=== PATIENT | male | born 1970 | race African-American/Black ===

== ENCOUNTER 2017-04-28 23:08 | Inpatient (IN) | payer SELFPAY ==
[2017-04-28 23:40] LABS: Prothrombin Time 21.9 SEC (12.0-14.7)
[2017-04-28 23:45] LABS: Oxyhemoglobin 23.6 % (94.0-97.0); Sodium 142 mmol/L (135-148)
[2017-04-28 23:46] LABS: Modified Allen's Test NOT DONE
[2017-04-28 23:47] LABS: Mode CPR BVM MASK; Vent NO
[2017-04-28 23:53] LABS: Hematocrit 32.5 % (42.0-52.0); PTT 203.9 SEC (22.9-36.1); Red Blood Cell (RBC) Count 3.62 mill/uL (4.70-6.10); White Blood Cell (WBC) Count 4.4 thou/uL (4.8-10.8)
[2017-04-28] MEDS ORDERED: Sodium Bicarbonate 2.4 MEQ/5 ML ONE (23:57)
[2017-04-28] MEDS ORDERED: Sodium Bicarb 50 MEQ/50 ML Abboject 8.4% SYRINGE ONE (23:58)
--- NOTE | 2017-04-29 | RAD ---
SINGLE VIEW OF THE CHEST: Comparison: None. History: Chest pain, shortness of breath, respiratory failure. FINDINGS: Single view of the chest shows a normal sized cardiomediastinal silhouette. There is no evidence of consolidation, mass, or pleural effusion. The bones are unremarkable. IMPRESSION: No evidence of acute cardiopulmonary disease. POS: [facility]
[2017-04-29 00:04] LABS: ALT (SGPT) 52 U/L (8-55); AST (SGOT) 102 U/L (5-34); Alkaline Phosphatase 60 U/L (40-150); Anion Gap 35 mmol/L (10-20); BUN (Urea Nitrogen) 13 mg/dL (8.9-20.6); Bilirubin, Total 0.4 mg/dL (0.2-1.2); Calc. Creatinine Clearance 0 mL/min (70-130); Carbon Dioxide 37 mmol/L (22-29); Chloride 108 mmol/L (98-107); Estimated GFR-MDRD 59; Globulin 3.4 g/dL (2.4-3.5); Protein, Total 6.2 g/dL (6.0-8.3)
[2017-04-29 00:06] LABS: Mean Platelet Volume 9.1 fL (7.4-10.4)
[2017-04-29] MEDS ORDERED: Calcium Chloride 1 GM/10 ML Abboject SYRINGE ONE ×2 (00:11→02:18)
[2017-04-29] MEDS ORDERED: EPINEPHrine 1 MG/10 ML Abboject SYRINGE ONE (00:11)
[2017-04-29] MEDS ORDERED: Sodium Bicarb 50 MEQ/50 ML Abboject 8.4% SYRINGE ONE ×4 (00:11→07:52)
[2017-04-29] MEDS ORDERED: PHENYLEPHRINE-NS 100 MCG/ML 10 ML SYRINGE ONE (00:13)
[2017-04-29 00:14] LABS: Calcium 9.6 mg/dL (7.8-10.44)
[2017-04-29 00:19] LABS: Band 8 % (5-11); Metamyelocyte 2 % (0-0); Neutrophil 40 % (42-75); Reactive Lymphocytes 2 % (0-10)
[2017-04-29] MEDS ORDERED: Phenylephrine 10 MG/NS 250 ML 250 ML ONE (01:01)
[2017-04-29] MEDS ORDERED: Fentanyl 100 MCG/2 ML VIAL ONE (01:14)
[2017-04-29 01:44] LABS: #Basophils 0.1 thou/uL (0.0-0.2); #Eosinphils 0.2 thou/uL (0.0-0.7); #Lymphocytes 3.4 thou/uL (1.20-3.40); #Monocytes 0.2 thou/uL (0.11-0.59); #Neutrophils 9.9 thou/uL (1.40-6.50); %Basophils 0.4 % (0.0-1.0); %Eosinophils 1.5 % (0.0-10.0); %Lymphocytes 24.6 % (21.0-51.0); %Monocytes 1.1 % (0.0-10.0); Hematocrit 31.6 % (42.0-52.0); Mean Platelet Volume 7.6 fL (7.4-10.4); White Blood Cell (WBC) Count 13.6 thou/uL (4.8-10.8)
[2017-04-29 01:53] LABS: ALT (SGPT) 508 U/L (8-55); AST (SGOT) 1277 U/L (5-34); Alkaline Phosphatase 79 U/L (40-150); Anion Gap 30 mmol/L (10-20); BUN (Urea Nitrogen) 14 mg/dL (8.9-20.6); Bilirubin, Total 0.4 mg/dL (0.2-1.2); Calc. Creatinine Clearance 0 mL/min (70-130); Calcium 9.2 mg/dL (7.8-10.44); Carbon Dioxide 17 mmol/L (22-29); Chloride 106 mmol/L (98-107); Estimated GFR-MDRD 45; Globulin 2.1 g/dL (2.4-3.5); Protein, Total 4.4 g/dL (6.0-8.3)
[2017-04-29 02:15] LABS: Sodium 146 mmol/L (135-148)
[2017-04-29 02:20] LABS: Mechanical Tidal Volume 500 ml; Mode SIMV; Modified Allen's Test NOT DONE; Pressure Support 10 cmH2O; Vent YES
[2017-04-29 02:24] LABS: Magnesium 2.4 mg/dL (1.6-2.6)
[2017-04-29 02:29] LABS: Prothrombin Time 29.5 SEC (12.0-14.7)
[2017-04-29] MEDS ORDERED: Norepinephrine 8 MG/250 ML BAG IVPB PRN (02:30)
[2017-04-29 02:42] LABS: Fibrinogen 89 mg/dL (253-463); PTT 146.2 SEC (22.9-36.1)
[2017-04-29] MEDS ORDERED: Phenylephrine HCL 10 MG, Admixture Fee 1 EACH in Sodium Chloride 0.9% 250 ML 250 ML IVPB SCH (02:45)
[2017-04-29] MEDS ORDERED: Phenylephrine 10 MG/NS 250 ML 250 ML IVPB SCH (02:45)
[2017-04-29 02:46] LABS: Phosphorus 11.4 mg/dL (2.3-4.7)
[2017-04-29] MEDS ORDERED: Fentanyl 20 MCG/ML 250 ML ONE (02:56)
[2017-04-29] MEDS ORDERED: Dextrose 50% Abboject 50 ML SYRINGE SLOW IVP PRN (03:01)
[2017-04-29] MEDS ORDERED: Sodium Chloride 0.9% 1,000 ML IV SCH (03:01)
[2017-04-29] MEDS ORDERED: TETANUS AND DIPHTHERIA TOX/PF 0.5 ML DISP.SYRIN IM ONE (03:01)
[2017-04-29] MEDS ORDERED: Dextrose 5% in Water 1,000 ML IV PRN (03:01)
[2017-04-29] MEDS ORDERED: Sodium Bicarb 50 MEQ/50 ML Abboject 8.4% SYRINGE IVP SCH (03:01)
[2017-04-29] MEDS ORDERED: Ondansetron HCl/PF 4 MG/2 ML Vial IVP PRN (03:01)
[2017-04-29] MEDS ORDERED: Ventilator Sedation Protocol 1 EACH FS SCH ×2 (03:01)
[2017-04-29] MEDS ORDERED: Propofol 1,000 MG/100 ML VIAL IV PRN (03:10)
[2017-04-29] MEDS ORDERED: Morphine Sulfate 2 MG/ML SYRINGE SLOW IVP PRN (03:10)
[2017-04-29] MEDS ORDERED: DISCONTINUE PREVIOUS NARCOTIC PAIN MEDICATIONS AND BENZODIAZEPINES FS SCH (03:10)
[2017-04-29] MEDS ORDERED: Fentanyl 20 MCG/ML 250 ML IVPB SCH (03:10)
[2017-04-29] MEDS ORDERED: Lorazepam 2 MG/ML VIAL SLOW IVP PRN (03:10)
[2017-04-29 03:27] LABS: #Eosinphils 0.1 thou/uL (0.0-0.7); #Lymphocytes 1.9 thou/uL (1.20-3.40); #Monocytes 0.2 thou/uL (0.11-0.59); #Neutrophils 6.7 thou/uL (1.40-6.50); %Basophils 0.2 % (0.0-1.0); %Eosinophils 1.2 % (0.0-10.0); %Lymphocytes 21.2 % (21.0-51.0); %Monocytes 2.1 % (0.0-10.0); Hematocrit 27.4 % (42.0-52.0); Mean Platelet Volume 7.5 fL (7.4-10.4); Red Blood Cell (RBC) Count 2.93 mill/uL (4.70-6.10); White Blood Cell (WBC) Count 8.9 thou/uL (4.8-10.8)
[2017-04-29] MEDS ORDERED: Calcium Chloride 13.6 MEQ in Sodium Chloride 0.9% 100 ML IVPB SCH (03:30)
[2017-04-29 03:38] LABS: Anion Gap 27 mmol/L (10-20); BUN (Urea Nitrogen) 15 mg/dL (8.9-20.6); Calc. Creatinine Clearance 0 mL/min (70-130); Calcium 9.1 mg/dL (7.8-10.44); Carbon Dioxide 18 mmol/L (22-29); Chloride 109 mmol/L (98-107); Estimated GFR-MDRD 45; Fibrinogen 179 mg/dL (253-463); Magnesium 2.2 mg/dL (1.6-2.6); Prothrombin Time 21.2 SEC (12.0-14.7)
[2017-04-29 03:39] LABS: PTT 93.7 SEC (22.9-36.1)
[2017-04-29 03:43] LABS: Phosphorus 9.5 mg/dL (2.3-4.7)
--- NOTE | 2017-04-29 04:05 | OP ---
DATE OF PROCEDURE: 04/29/2017 PREOPERATIVE DIAGNOSIS: Status post impalement on a fence post with an entrance wound on his right infragluteal fold and exit in his groin with massive hemorrhage in the emergency department with concern for right leg/intra- abdominal hemorrhage. POSTOPERATIVE DIAGNOSIS: Status post impalement on a fence post with an entrance wound on his right infragluteal fold and exit in his groin with massive hemorrhage in the emergency department with concern for right leg/intra- abdominal hemorrhage. PROCEDURE: Right groin exploration with ligation of multiple venous and arterial bleeders. Femoral artery and vein repair. Irrigation, debridement and packing of the right groin wound. SURGEONS: Dr. Terell Freed and Dr. Rhina Anaya CLINICAL QUALITY MANAGER: SHANIA Edwards. ANESTHESIA: General endotracheal. ESTIMATED BLOOD LOSS: Massive. Transfusions are recorded anesthesia record DESCRIPTION OF PROCEDURE: I met the patient in the hallway on the way to the operating room and assisted in moving him to the operating room, transferring him to the bed and removing the tourniquet. Manual pressure was held during prepping. The patient was then draped while manual pressure was held. Femoral artery compression was performed. There was a palpable femoral pulse. The exit wound was opened and extended both up toward the inguinal ligament and down towards the knee. Wound was extended twice more to allow for adequate exposure. Upon entering the wounds we were immediately inside a large cavity that was superficial to the femoral arterial and venous system and medial. There was a significant amount of venous bleeding which was controlled with multiple ties and clips Femoral vein was repaired with interrupter 5-0 prolene. After the venous bleeding had been controlled, the femoral artery pressure was released. There were multiple small bleeders that were controlled with clips and 5-0 prolene in the Superficial femoral artery. The femoral artery itself was exposed, exposing the bifemoral bifurcation and superficial femoral artery. There was a palpable pulse down his superficial femoral artery. Grass and debris were removed from the wound. The wound was then copiously irrigated and packed and manual pressure held while Dr. Anaya explored the abdomen. After a negative abdominal exploration and that wound closure, the groin wound was again explored. Multiple small bleeders were again controlled with clips. The wound was copiously irrigated and packed with Betadine soaked gauze. The second wound that communicated with his buttock wound was again explored, irrigated, clear and packed with Betadine soaked gauze. The patient was then frog-legged and his buttock wound copiously prepped with Betadine. The wound was then packed with Betadine soaked gauze. A sterile dressing was applied and towels covering the wounds were held in place with Ioban. The patient was transferred to the Intensive Care Unit in critical condition. Needle, sponge, and instrument counts were all reported as correct. AFSHAN
[2017-04-29 04:08] LABS: Oxyhemoglobin 96.4 % (94.0-97.0); Sodium 147 mmol/L (135-148)
[2017-04-29] MEDS ORDERED: Albumin 25% 25 GM/100 ML BOT IVPB SCH ×2 (04:15→06:37)
[2017-04-29 04:16] LABS: Mechanical Tidal Volume 500 ml; Mode SIMV; Modified Allen's Test NOT DONE; Pressure Support 10 cmH2O; Vent YES
[2017-04-29] MEDS ORDERED: Sodium Bicarb 50 MEQ/50 ML VIAL IVP SCH (04:30)
[2017-04-29] MEDS ORDERED: Sodium Bicarbonate 150 MEQ in Dextrose 5% in Water 1,000 ML IV SCH ×4 (04:30→05:45)
[2017-04-29] MEDS ORDERED: Hydrocortisone Sod Succ/PF 100 mg/2 ml Vial IVP SCH (04:30)
[2017-04-29] MEDS ORDERED: Calcium Chloride 1 GM/10 ML Abboject SYRINGE IVP SCH ×2 (04:30→05:45)
[2017-04-29] MEDS ORDERED: Albumin 5% 250 ML ONE (04:42)
[2017-04-29] MEDS ORDERED: SODIUM CHLORIDE IVPB SCH (05:15)
[2017-04-29] MEDS ORDERED: ADMIXTURE FEE IVPB SCH (05:15)
[2017-04-29] MEDS ORDERED: PHENYLEPHRINE HCL IVPB SCH (05:15)
[2017-04-29 05:57] LABS: Fibrinogen 164 mg/dL (253-463)
[2017-04-29 05:58] LABS: Prothrombin Time 26.5 SEC (12.0-14.7)
[2017-04-29 05:59] LABS: PTT 113.6 SEC (22.9-36.1)
[2017-04-29 06:07] LABS: #Lymphocytes 1.1 thou/uL (1.20-3.40); #Monocytes 0.2 thou/uL (0.11-0.59); #Neutrophils 6.4 thou/uL (1.40-6.50); %Basophils 0.1 % (0.0-1.0); %Eosinophils 0.5 % (0.0-10.0); %Monocytes 2.9 % (0.0-10.0); Hematocrit 15.6 % (42.0-52.0); Mean Platelet Volume 7.5 fL (7.4-10.4); Red Blood Cell (RBC) Count 1.72 mill/uL (4.70-6.10); White Blood Cell (WBC) Count 8.2 thou/uL (4.8-10.8)
[2017-04-29] MEDS ORDERED: ADMIXTURE FEE IV SCH (06:30)
[2017-04-29] MEDS ORDERED: HUMAN PROTHROMBIN COMPLX IV SCH (06:30)
[2017-04-29] MEDS ORDERED: Phytonadione 10 MG/ML AMP SLOW IVP SCH (06:30)
[2017-04-29] MEDS ORDERED: Midazolam HCl 2 mg/2 ml Vial ONE (06:33)
--- NOTE | 2017-04-29 07:00 | RAD ---
SINGLE VIEW OF THE PELVIS COMPARISON: None. HISTORY: Pelvic pain. FINDINGS: Single view of the pelvis shows no evidence of acute fracture or dislocation. There is a radiopaque structure external to the patient overlying the right hip with limited evaluation of the right femu r. No significant degenerative changes seen in either hip. IMPRESSION: Unremarkable exam. POS: [facility]
--- NOTE | 2017-04-29 08:24 | RAD ---
RIGHT FEMUR 3 VIEWS: HISTORY: Injury to right thigh. FINDINGS/IMPRESSION: Soft tissue gas is seen in the mid thigh anteriorly and medially. No osseous abnormality identified . POS: [facility]
[2017-04-29 08:38] LABS: Mechanical Tidal Volume 500 ml; Mode SIMV.PSV; Modified Allen's Test NOT DONE; Pressure Support 10 cmH2O; Sodium 150 mmol/L (135-148); Vent YES
--- NOTE | 2017-04-29 08:50 | RAD ---
PORTABLE SUPINE CHEST: HISTORY: Post cardiac arrest. COMPARISON: . FINDINGS: Lungs are clear of focal infiltrate. No evidence of vascular congestion, edema, pneumothorax, or ef fusion. IMPRESSION: No acute lung process. POS: [facility]
[2017-04-29 09:04] LABS: Anion Gap 30 mmol/L (10-20); BUN (Urea Nitrogen) 14 mg/dL (8.9-20.6); Calc. Creatinine Clearance 65 mL/min (70-130); Calcium 8.8 mg/dL (7.8-10.44); Carbon Dioxide 18 mmol/L (22-29); Chloride 105 mmol/L (98-107); Estimated GFR-MDRD 38; Magnesium 2.1 mg/dL (1.6-2.6); Phosphorus 8.1 mg/dL (2.3-4.7)
--- NOTE | 2017-04-29 09:05 | RAD ---
PORTABLE CHEST: HISTORY: Assess central line placement. COMPARISON: 04/29/17 at 5:02 a.m. FINDINGS/IMPRESSION: Central line via the right subclavian vein has been placed and the line overlies the SVC and appears in adequate position. ET tube and NG tube are unchanged. The lung anthony remain clear. No acute finding. POS: [facility]
[2017-04-29 09:35] LABS: Oxyhemoglobin 97.6 % (94.0-97.0); Sodium 149 mmol/L (135-148)
[2017-04-29 09:36] LABS: Mechanical Tidal Volume 500 ml; Pressure Support 10 cmH2O; Vent YES
--- NOTE | 2017-04-29 09:36 | CON ---
DATE OF CONSULTATION: 04/29/2017 HISTORY OF PRESENT ILLNESS: The history is obtained from Dr. Anaya. The patient was jumping a wo [place] fence. On the other side of the wooden fence, he encountered a metal T-bar type fence post malini t impaled him through the right infragluteal fold and exited through his groin. There was some inte rvening period of time until he was found and removed from the pole. It is unclear to me about his neurologic status at that time, there was reported a large amount of blood. He was intubated and br ought into the hospital. Reportedly, he had multiple arrests in the hospital, but they were able to resuscitate him. The groin wound had a tourniquet applied to it allowing for some hemostatic contr ol. He was emergently brought to the operating room for exploration and controlling hemorrhage. A fast exam was performed in the ER, which reports free fluid in the abdomen. PAST MEDICAL HISTORY: Unknown. PAST SURGICAL HISTORY: Unknown. CURRENT MEDICATIONS: Unknown. ALLERGIES: Unknown. SOCIAL HISTORY: Unknown. REVIEW OF SYSTEMS: Not performed. PHYSICAL EXAMINATION: There is a tourniquet on the right groin. There is a puncture wound, both on the right infragluteal fold and on the anterior thigh just below the groin crease. The patient is ventilated and in extremis being brought to the operating room for exploration.
[2017-04-29 09:37] LABS: Mode SIMV
--- NOTE | 2017-04-29 09:37 | HP ---
HISTORY: Mr. Baugh is a 46-year-old male who jumped over a wooden fence impaling himself through the right leg on a metal bar. He apparently was trapped there for about 20 minutes before he could be lifted off and lost a large amount of blood at the scene. He was intubated with a single dose of Ketamine and has been completely unresponsive since. Hemostatic agents and a tourniquet was placed by the flight crew and he was transported to our emergency room with an interosseous line in place since no other peripheral IV access could be obtained. He was receiving 1 unit of blood on his arrival and had very low blood pressures en route and lost his pulse on arrival in the Emergency Room, CPR was performed by the emergency department with return of a pulse. On my arrival, he had a weak pulse, but shortly thereafter went into PEA again and CPR was resumed. I placed a large bore CVC in the left subclavian position and the patient received additional epinephrine and bicarbonate as well as the plasma provided by the flight crew and 2 units of blood provided by the ER. After his first round of CPR, the massive transfusion protocol was initiated. The patient had an EMV of 3T throughout his ER stay and required multiple rounds of CPR with return of a spontaneous pulse in between rounds of CPR. His pupils were dilated and fixed on my exam and he has not received any paralytics. Heart rate with return of pulse was elevated and blood pressure low and his IVC was collapsed and heart hyperdynamic on ultrasound. There was no blood in the upper abdomen. The ER doctor felt that there was free fluid in the pelvis, although on my examination of the images, I felt that this could be fluid filled loops of bowel. The wound in his groin tracked from the perineal area on the right to the right femoral area. The right femoral area was packed with a jasso gauze dressing. This was not taken down, but the tract of the wound seemed superficial and the perineal wound did not seem to extend up toward the pelvic cavity. After multiple rounds of CPR, the blood products were MTP were delivered and the patient had a low, but sustained blood pressure and pulse, so he was taken emergently to the operating room by Dr. Freed of Vascular Surgery and myself. I did perform a brief laparotomy as Dr. Freed was exploring the leg and there was no evidence of penetration into the abdominal cavity or retroperitoneum. The surgical bleeding from the wound was addressed, but the patient was oozing from multiple torn muscle and raw tissue surfaces and also from his nose and NG tube. The femoral and perineal wounds were irrigated and tightly packed and the patient was brought back to the CCU for further resuscitation. His temperature on arrival in the CCU was 94 and after pressure dressings were placed to the leg, Yfn [employer]gers and blankets were placed to try to warm him and additional blood products ordered with warmers. He was brought up from the operating room on pressors to maintain a low blood pressure and with continued blood products and clotting factor administration this was able to be slightly weaned. His mother had arrived and a conversation was had with her. It was explained that he has arrived in severe shock and was currently critically ill and coagulopathic and that he had been unresponsive throughout and likely had suffered additional damage from his multiple cardiac arrests. She expressed understanding. PAST MEDICAL HISTORY: At the time of his arrival past medical history was completely unavailable. His mother did report that he did not have any known medical problems except sciatica. PAST SURGICAL HISTORY: No previous surgeries. ALLERGIES: No allergies. MEDICATIONS: His only medications are Flexeril and tramadol. He had received a Medrol Dosepak, but this was back in February. FAMILY HISTORY: Diabetes in his mother. SOCIAL HISTORY: Smoking 1 pack every 2-3 days and drinking on a regular basis, but no illicit drugs that she knows of. REVIEW OF SYSTEMS: Unobtainable throughout. PHYSICAL EXAMINATION: Primary and secondary survey revealed a severe wound to the right leg as previously described with multiple vascular structures disrupted by his injury, but no penetration into the rectum on rectal exam and no penetration to the abdominal cavity or retroperitoneum by direct visualization and palpation at laparotomy. No other visible trauma or deformities. HEART: Tachycardic, regular. LUNGS: His lungs were clear on the ventilator. HEENT: Atraumatic. NEUROLOGIC: Following surgery his pupils were still dilated, but slightly reactive, although no other movement was seen on physical examination with painful stimuli to the extremities; however, the patient had received one dose of rocuronium prior to leaving the operating room. Labs in the ER showed a severe acidosis and base deficits and an initial normal hematocrit, as anticipated. His electrolytes were felt to be unreliable even though these had been drawn directly from the subclavian central venous catheter immediately after placement. This was, however upstream from his interosseous line in the left shoulder and he has been receiving bicarbonate and epinephrine through this line. Sodium was 175. Therefore other results were felt to be unreliable. His initial ABG showed a severe metabolic acidosis with a base deficit of almost 20 and a pelvis and chest x-ray were unremarkable. ASSESSMENT: Patient with severe hemorrhagic shock, perhaps irreversible, status post surgical control of bleeding in the operating room by Vascular Surgery and undergoing continued resuscitation, critically ill, cold and coagulopathic requiring pressors and without any responsiveness on neurologic exam since his arrival in the emergency room. The family is updated on his critical condition and current treatment. We are trying to correct his coagulopathy and get him warm. AFSHAN
[2017-04-29 09:43] LABS: #Lymphocytes 0.7 thou/uL (1.20-3.40); #Monocytes 0.2 thou/uL (0.11-0.59); %Basophils 0.2 % (0.0-1.0); %Eosinophils 0.5 % (0.0-10.0); %Lymphocytes 13.2 % (21.0-51.0); %Monocytes 4.4 % (0.0-10.0); Hematocrit 18.4 % (42.0-52.0); Mean Platelet Volume 7.2 fL (7.4-10.4); Red Blood Cell (RBC) Count 1.99 mill/uL (4.70-6.10); White Blood Cell (WBC) Count 4.9 thou/uL (4.8-10.8)
[2017-04-29 09:46] LABS: Prothrombin Time 18.9 SEC (12.0-14.7)
[2017-04-29 09:47] LABS: PTT 57.4 SEC (22.9-36.1)
[2017-04-29 10:06] LABS: Anion Gap 27 mmol/L (10-20); BUN (Urea Nitrogen) 17 mg/dL (8.9-20.6); Calc. Creatinine Clearance 57 mL/min (70-130); Calcium 9.8 mg/dL (7.8-10.44); Carbon Dioxide 19 mmol/L (22-29); Chloride 108 mmol/L (98-107); Estimated GFR-MDRD 33; Magnesium 1.7 mg/dL (1.6-2.6); Phosphorus 2.6 mg/dL (2.3-4.7)
[2017-04-29 10:18] LABS: Band 25 % (5-11); Metamyelocyte 2 % (0-0); Polychromasia SLIGHT = 2-3 cells (100X) (0-2/hpf); Reactive Lymphocytes 1 % (0-10)
[2017-04-29 10:39] VITALS: TEMP 95.9
[2017-04-29 11:21] VITALS: BP 60/35
--- NOTE | 2017-04-29 12:12 | PRG ---
DATE OF SERVICE: 04/29/2017 SUBJECTIVE: Mr. Baugh is a 46-year-old -[place] man who suffered a complex right thigh in [facility] from a penetrating trauma. Extensive amount of soft tissue destruction resulted from this inju ry including significant vascular injuries. The patient previously underwent aspiration and control of the bleeding. He has continued to receive massive amount of blood and blood products via massiv e transfusion protocol. Surgical bleed was suspected and the vascular surgeon was contacted and the patient has returned to the operating room for reexploration. Currently, he remains sedated on ful l mechanical ventilator support. We will be able to wean him off all vasopressors. He remains in c selena, on full mechanical ventilatory support. OBJECTIVE: CURRENT VITAL SIGNS: Includes, blood pressure 130/50, heart rate is 130, respiration is 25 on mecha nical ventilatory support, oxygen saturation is 100% on FIO2 of 100%. HEENT: Examination reveals pupils which are fixed at 2 mm, but slightly reactive to light. HEART: Reveals regular rate with sinus tachycardia. No murmurs or gallops auscultated. LUNGS: Clear to auscultation bilaterally. Breathing is strict and unlabored. ABDOMEN: Soft and nondistended. EXTREMITIES: Reveals 2+ bilateral radial and left anterior and posterior tibial pulses palpable. R ight foot is warm to touch. The dressings in the right groin is saturated with venous blood. NEUROLOGIC: The patient remains in coma. LABORATORY DATA: Pertinent laboratory findings currently includes CBC with 8,200 white blood cells, hemoglobin is 5.4, hematocrit is 15.6, and platelet count is 46,000. Coagulation studies includes PTT 114, INR is 2.3 and fibrinogen is low at 164. [facility] sodium 149, potassium is 4.7, chloride is 109, bicarbonate is 18, BUN 15, creatini ne is 1.67, and glucose is 125. Magnesium at that time is noted at 2.2. The patient is currently a nuric. IMPRESSION: 1. Status post penetrating right groin trauma with extensive soft tissue and vascular injuries. 2. Acute posttraumatic respiratory failure. 3. Acute anuric renal failure secondary to acute tubular necrosis. 4. Acute disseminated intravascular coagulopathy. 5. Acute blood loss anemia. 6. Acute metabolic acidosis. PLAN: 1. Continue with full mechanical ventilatory support until the patient is hemodynamically stable. 2. Continue with ongoing resuscitation including blood and blood products as indicated. We will do best to avoid vasopressor use in this setting. 3. Patient is started on bicarbonate infusion and will be continued until renal failure improves. 4. Above findings and plan will be the communicated with the patient's family once they arrive. Total critical care time is 65 minutes.
--- NOTE | 2017-04-29 12:19 | OP ---
DATE OF PROCEDURE: 04/29/2017 PREOPERATIVE DIAGNOSIS: Continued hemorrhage with coagulopathy from the right groin. POSTOPERATIVE DIAGNOSIS: Continued hemorrhage with coagulopathy from the right groin. PROCEDURES PERFORMED: Right groin exploration with repair of superficial femoral artery and femoral vein, control of hemorrhage from the arterial branches, repacking. SURGEONS: Dr. Terell Freed and Dr. Rich Urias. PACKS: Three Kerlix packs, 2 in the anterior groin and 1 through the entry wound in the buttock. SPECIMENS: None. DESCRIPTION OF PROCEDURE: The patient was brought back to the operating room after becoming hypovol emic and significant hemorrhage from his right thigh. The dressings were all removed and the wound unpacked. All packs were counted. The wound was then prepped and draped in usual sterile fashion. The wound was explored. There were again multiple branches that were bleeding, which were clipped and tied. The superficial femoral a rtery had a small area of hemorrhage, which was controlled with interrupted 5-0 Prolene suture. The re is also an area on the femoral vein that was again controlled with 5-0 Prolene suture. There was just a continued ooze from all the muscle beds and nothing that was able to be either clipped or ti ed or suture ligated. Surgicel was placed and the wound was repacked. A VAC type dressing was then placed with suction tubing both anteriorly and in the posterior wound. Wounds were then dressed wi th Iain bandage, and the patient transported back to the Intensive Care Unit. Throughout the operati on, the patient had a continuous resuscitation with blood products. In my opinion, this is more than likely a situation of uncontrollable hemorrhage and coagulopathy an d made proved to be hopeless in this man's situation. We entertained the idea of amputation, but th is would require a hip disarticulation at this level and we would just create new coagulopathic beds of bleeding performing amputation.
[2017-04-30 08:24] LABS: Oxyhemoglobin 97.6 % (94.0-97.0); Sodium 149 mmol/L (135-148)
[2017-04-30 08:42] LABS: Mode OR ABG; Vent YES
--- NOTE | 2017-05-01 11:36 | DS ---
DATE OF ADMISSION: 04/28/2017 DATE OF : 04/29/2017 ADMISSION DIAGNOSES: 1. Status post impalement to right proximal thigh. 2. Severe anemia secondary to blood loss. 3. Multiple large vessel injuries. 4. Traumatic cardiac arrest. CONSULTATIONS: Cardiovascular Surgery, Dr. Freed. PROCEDURES: 1. Right groin exploration with repair of superficial femoral artery and femoral vein, control of h emorrhage from the arterial branches, repacking. 2. Repeat exploration of wound and repacking. 3. Exploratory laparotomy. SUMMARY: The patient is a 46-year-old man who reportedly was going over a fence wh en he impaled himself on a large fence stake. The patient was reportedly impaled for at least 20 mi nutes, this time is derived from the reports of the time of 911 call to EMS arrival. The patient wa s brought as a level 1 trauma activation secondary to low blood pressure and shortly around the time of arrival, the patient went into a cardiac arrest. The patient had several rounds of ACLS protoco ls, chest compressions. He was intubated and was receiving blood products. The patient was eventua lly able to have a spontaneous return of circulation, albeit blood pressure maintained in the 60s sy stolic. The patient was taken emergently to the operating room for his first procedure. The patien t was able to be packed and dressed and taken to the Critical Care Unit to continue resuscitation, t he patient had been on one vasopressor upon his arrival in the Critical Care Unit and the massive tr ansfusion protocol continued for the next several hours. The patient's blood pressure never would i mprove much greater than the 80s, at times in the 90s between blood products and a second vasopresso r. It appeared that the patient may have become coagulopathic at some point, noting that his dressi ng started to be soaked with blood, both his abdominal, his thigh and he had bleeding from his mouth , nose and ears. The patient would eventually be taken back to the operating room to assess bleedin g from his groin wound. There was significant amount of ooze, but no active bleeding from the previ ously ligated vessels. The patient will be taken back to the Critical Care Unit for continued resus citation. That morning, the patient's mother was contacted and given the situation. She agreed malini t withdrawal of care would be appropriate due to the possibility the patient may have been anoxic fo r an extended period of time and off of any sedatives the patient had not made any purposeful moveme nts. The patient had been transfused in total 26 units of red blood cells, 24 units of fresh frozen plasma, 4 packs of platelets and 8 units of cryoprecipitate. The patient would eventually be extub ated and shortly after would succumb to his injuries.
== END 2017-04-29 15:00 | disposition expired | DRG 907 ==
LOC: ERS 23:08 → EDBD 23:08 → SDC 04-29 00:04 → CCU 04-29 01:23 → UNMERGE 04-29 01:23 → MERGE 04-29 01:23
PROVIDERS: ADMIT Surgery; ATTEND Surgery
PROC: 04QK0ZZ Repair Right Femoral Artery, Open Approach (ICD-10-PCS; principal; 2017-04-29)
PROC: 06QM0ZZ Repair Right Femoral Vein, Open Approach (ICD-10-PCS; 2017-04-29)
PROC: 30233N1 Transfusion of Nonautologous Red Blood Cells into Peripheral Vein, Percutaneous Approach (ICD-10-PCS; 2017-04-29)
PROC: 30233K1 Transfusion of Nonautologous Frozen Plasma into Peripheral Vein, Percutaneous Approach (ICD-10-PCS; 2017-04-29)
PROC: 30233R1 Transfusion of Nonautologous Platelets into Peripheral Vein, Percutaneous Approach (ICD-10-PCS; 2017-04-29)
PROC: 02HV33Z Insertion of Infusion Device into Superior Vena Cava, Percutaneous Approach (ICD-10-PCS; 2017-04-29)
PROC: 5A1935Z Respiratory Ventilation, Less than 24 Consecutive Hours (ICD-10-PCS; 2017-04-29)
PROC: 5A12012 Performance of Cardiac Output, Single, Manual (ICD-10-PCS; 2017-04-29)
DX: S71.141A Puncture wound with foreign body, right thigh, initial encounter (principal); J96.00 Acute respiratory failure, unspecified whether with hypoxia or hypercapnia; T79.4XXA Traumatic shock, initial encounter; I46.8 Cardiac arrest due to other underlying condition; T79.5XXA Traumatic anuria, initial encounter; S72.91XB Unspecified fracture of right femur, initial encounter for open fracture type I or II; E87.2 Acidosis; S75.111A Minor laceration of femoral vein at hip and thigh level, right leg, initial encounter; D62 Acute posthemorrhagic anemia; S75.011A Minor laceration of femoral artery, right leg, initial encounter; F17.210 Nicotine dependence, cigarettes, uncomplicated; Y93.39 Activity, other involving climbing, rappelling and jumping off; S71.121A Laceration with foreign body, right thigh, initial encounter; Z66 Do not resuscitate
CPT/HCPCS: 36415; 36416; 36430; 71010; 72170; 80053; 82150; 82533; 82805; 83735; 84100; 85025; 85049; 85300; 85362; 85379; 85384; 85610; 85730; 86850; 86900; 86901; 96374; 96375; C1751; C9132; G0390; J0171; J0694; J1720; J2250; J2370; J3010; J7050; J7070; P9012; P9016; P9017; P9035; P9045; P9047; P9059